=== PATIENT | female | born 1995 | race Two or more races ===

== ENCOUNTER 2017-05-20 12:20 | Emergency (ER) | payer MEDICAID ==
[2017-05-20 12:39] VITALS: TEMP 98.8
[2017-05-20 12:52] VITALS: RESP 18
--- NOTE | 2017-05-20 13:03 | ED PDOC ---
Arrival/HPI - General Chief Complaint: Headache Time Seen by Provider: 05/20/17 12:47 Historian: Patient - History of Present Illness Narrative History of Present Illness (Text): 05/20/17 12:52 Selma Little is a 21 year old female, whose past medical history includes migraine, who presents to the emergency department complaining of worsening headache today. Patient states that her last menstrual cycle was in March and is afraid to take any migraine medication because patient is worried that she is . No other complaints offered at this time. Past Medical History - Provider Review Nursing Documentation Reviewed: Yes - Cardiac Hx Cardiac Disorders: No - Pulmonary Hx Respiratory Disorders: No - Neurological Hx Neurological Disorder: Yes Hx Headaches: Yes - HEENT Hx HEENT Disorder: No - Renal Hx Renal Disorder: No - Endocrine/Metabolic Hx Endocrine Disorders: No - Hematological/Oncological Hx Blood Disorders: No - Integumentary Hx Dermatological Disorder: No - Musculoskeletal/Rheumatological Hx Musculoskeletal Disorders: Yes Hx Fractures: Yes - Gastrointestinal Hx Gastrointestinal Disorders: No - Genitourinary/Gynecological Hx Genitourinary Disorders: No - Psychiatric Hx Psychophysiologic Disorder: No Hx Substance Use: No Family/Social History - Physician Review Nursing Documentation Reviewed: Yes Family/Social History: No Known Family HX Smoking Status: Never Smoked Hx Alcohol Use: Yes Frequency of alcohol use: Socially Hx Substance Use: No Allergies/Home Meds Allergies/Adverse Reactions: Allergies No Known Allergies Allergy (Verified 05/20/17 12:34) Review of Systems - Physician Review All systems were reviewed & negative as marked: Yes - Review of Systems Constitutional: absent: Fevers, Night Sweats Eyes: absent: Vision Changes ENT: absent: Hearing Changes Respiratory: absent: SOB, Cough Cardiovascular: absent: Chest Pain Gastrointestinal: absent: Abdominal Pain Genitourinary Female: absent: Dysuria Musculoskeletal: absent: Arthralgias Skin: absent: Rash, Pruritis Neurological: Headache Endocrine: absent: Diaphoresis Hemo/Lymphatic: absent: Adenopathy Psychiatric: absent: Anxiety, Depression Physical Exam Vital Signs Reviewed: Yes Vital Signs Temp Pulse Resp BP Pulse Ox 05/20/17 12:51 98.8 F 83 18 144/79 98 05/20/17 12:34 98.8 F 83 16 144/79 97 Temperature: Afebrile Blood Pressure: Normal Pulse: Regular Respiratory Rate: Normal Appearance: Positive for: Well-Appearing, Non-Toxic, Comfortable Pain Distress: None Mental Status: Positive for: Alert and Oriented X 3 - Systems Exam Head: Present: Atraumatic, Normocephalic Pupils: Present: PERRL Extroacular Muscles: Present: EOMI Conjunctiva: Present: Normal Mouth: Present: Moist Mucous Membranes Neck: Present: Normal Range of Motion Respiratory/Chest: Present: Clear to Auscultation, Good Air Exchange. No: Respiratory Distress, Accessory Muscle Use Cardiovascular: Present: Regular Rate and Rhythm, Normal S1, S2. No: Murmurs Abdomen: Present: Normal Bowel Sounds. No: Tenderness, Distention, Peritoneal Signs Back: Present: Normal Inspection Upper Extremity: Present: Normal Inspection. No: Cyanosis, Edema Lower Extremity: Present: Normal Inspection. No: Edema Neurological: Present: GCS=15, CN II-XII Intact, Speech Normal Skin: Present: Warm, Dry, Normal Color. No: Rashes Psychiatric: Present: Alert, Oriented x 3, Normal Insight, Normal Concentration Medical Decision Making ED Course and Treatment: 05/20/17 13:03 Impression: 21 year old female complaining of a worsening headache Differential Diagnosis included but are not limited to: Plan: -- Head CT w/o contrast -- Flexeril, Motrin, and Zofran -- Reassess and disposition Progress Notes: - RAD Interpretation Radiology Orders: 05/20/17 12:53 HEAD W/O CONTRAST [CT] Stat - Medication Orders Current Medication Orders: Discontinued Medications Cyclobenzaprine HCl (Flexeril) 10 mg PO STAT STA Stop: 05/20/17 12:54 Last Admin: 05/20/17 13:21 Dose: 10 mg Ibuprofen (Motrin Tab) 800 mg PO STAT STA Stop: 05/20/17 12:54 Last Admin: 05/20/17 13:21 Dose: 800 mg Ondansetron HCl (Zofran Odt) 8 mg PO STAT STA Stop: 05/20/17 12:54 Last Admin: 05/20/17 13:21 Dose: 8 mg - Scribe Statement The provider has reviewed the documentation as recorded by the Bronwynibe Tereza Rivas Provider Scribe Attestation: All medical record entries made by the Scribe were at my direction and personally dictated by me. I have reviewed the chart and agree that the record accurately reflects my personal performance of the history, physical exam, medical decision making, and the department course for this patient. I have also personally directed, reviewed, and agree with the discharge instructions and disposition. Disposition/Present on Arrival - Present on Arrival Any Indicators Present on Arrival: No History of DVT/PE: No History of Uncontrolled Diabetes: No Urinary Catheter: No History of Decub. Ulcer: No History Surgical Site Infection Following: None - Disposition Have Diagnosis and Disposition been Completed?: Yes Diagnosis: Headache Disposition: HOME/ ROUTINE Disposition Time: 15:09 Patient Plan: Discharge Patient Problems: Current Active Problems Problem Status Onset Headache Acute Condition: GOOD Discharge Instructions (ExitCare): Migraine Headache (DC), Tension Headache (DC ) Additional Instructions: Selma- I am sorry that you are not feeling well and the headaches are getting worse. Your CT Scan was negative/normal. Follow up with your doctor. Return to us if problems. Motrin if for pain, Zofran ODT is for nausea/upset stomach Prescriptions: Ibuprofen [Motrin Tab] 800 mg PO TID #30 tab Ondansetron ODT [Zofran ODT] 8 mg PO TID #30 odt Forms: [employer] (Lao)
--- NOTE | 2017-05-20 14:00 | CT ---
PROCEDURE: CT HEAD WITHOUT CONTRAST. HISTORY: Left Sided Headache/Occipital COMPARISON: None available. TECHNIQUE: Axial computed tomography images were obtained through the head/brain without intravenous contrast. Radiation dose: Total exam DLP = 873 mGy-cm. This CT exam was performed using one or more of the following dose reduction techniques: Automated exposure control, adjustment of the mA and/or kV according to patient size, and/or use of iterative reconstruction technique. FINDINGS: HEMORRHAGE: No intracranial hemorrhage. BRAIN: No mass effect or edema. No atrophy or chronic microvascular ischemic changes. VENTRICLES: Unremarkable. No hydrocephalus. CALVARIUM: Unremarkable. PARANASAL SINUSES: Unremarkable as visualized. No significant inflammatory changes. MASTOID AIR CELLS: Unremarkable as visualized. No inflammatory changes. OTHER FINDINGS: None. IMPRESSION: Normal CT of the Head.
[2017-05-20 15:20] VITALS: BP 132/71; PULSE 71; O2SAT 100
== END 2017-05-20 15:20 | disposition home or self-care (01) ==
LOC: ED 12:20 → MERGE 12:20 → ED 15:20
DX: R51 Headache (principal)

== ENCOUNTER 2017-06-23 21:19 | Observation (INO) | payer BC, MEDICAID ==
[2017-06-23] MEDS ORDERED: Sodium Chloride 0.9% 1,000 ML IV STA (21:48)
--- NOTE | 2017-06-23 21:52 | ED PDOC ---
Arrival/HPI <Emile York - Last Filed: 06/24/17 00:27> - General Historian: Patient - History of Present Illness Time/Duration: Other (today) Symptom Onset: Gradual Symptom Course: Unchanged Quality: Aching, Cramping Activities at Onset: Light Context: Home <Miles Zamora - Last Filed: 06/24/17 02:03> - General Chief Complaint: Abdominal Pain Time Seen by Provider: 06/23/17 21:37 - History of Present Illness Narrative History of Present Illness (Text): 06/23/17 21:47 21 year old female, with no significant past medical history, no known drug allergies, who presents to the Emergency department complaining of lower abdominal pain which started earlier today. Patient describes pain as aching and cramping sensation, on and off with same severity, and non-radiating. Patient denies any urinary symptoms or vomiting, but notes she feels nauseous. Patient reports her last normal menstrual period was March 2017. Pt. has no fever or chills, no flank pain. (Miles Zamora) Past Medical History - Provider Review Nursing Documentation Reviewed: Yes - Cardiac Hx Cardiac Disorders: No - Pulmonary Hx Respiratory Disorders: No - Neurological Hx Neurological Disorder: Yes Hx Headaches: Yes - HEENT Hx HEENT Disorder: No - Renal Hx Renal Disorder: No - Endocrine/Metabolic Hx Endocrine Disorders: No - Hematological/Oncological Hx Blood Disorders: No - Integumentary Hx Dermatological Disorder: No - Musculoskeletal/Rheumatological Hx Musculoskeletal Disorders: Yes Hx Fractures: Yes - Gastrointestinal Hx Gastrointestinal Disorders: No - Genitourinary/Gynecological Hx Genitourinary Disorders: No - Psychiatric Hx Psychophysiologic Disorder: No Hx Substance Use: No <Miles Zamora - Last Filed: 06/24/17 02:03> Family/Social History - Physician Review Nursing Documentation Reviewed: Yes Family/Social History: Unknown Family HX Smoking Status: Never Smoked Hx Alcohol Use: Yes Hx Substance Use: No <Miles Zamora - Last Filed: 06/24/17 02:03> Allergies/Home Meds <Emile York - Last Filed: 06/24/17 00:27> <Miles Zamora - Last Filed: 06/24/17 02:03> Allergies/Adverse Reactions: Allergies No Known Allergies Allergy (Verified 05/20/17 12:34) Review of Systems - Physician Review All systems were reviewed & negative as marked: Yes - Review of Systems Constitutional: absent: Fevers Respiratory: absent: SOB, Cough Cardiovascular: absent: Chest Pain Gastrointestinal: Abdominal Pain, Nausea. absent: Diarrhea, Vomiting Genitourinary Female: absent: Dysuria, Frequency, Hematuria, Urine Output Changes Musculoskeletal: absent: Back Pain, Neck Pain Skin: absent: Rash Neurological: absent: Headache, Dizziness <Miles Zamora Q - Last Filed: 06/24/17 02:03> Physical Exam Vital Signs Reviewed: Yes Temperature: Afebrile Blood Pressure: Normal Pulse: Regular Respiratory Rate: Normal Appearance: Positive for: Well-Appearing, Non-Toxic, Comfortable Pain Distress: Moderate Mental Status: Positive for: Alert and Oriented X 3 - Systems Exam Head: Present: Atraumatic, Normocephalic Pupils: Present: PERRL Extroacular Muscles: Present: EOMI Conjunctiva: Present: Normal Mouth: Present: Moist Mucous Membranes Neck: Present: Normal Range of Motion Respiratory/Chest: Present: Clear to Auscultation, Good Air Exchange. No: Respiratory Distress, Accessory Muscle Use Cardiovascular: Present: Regular Rate and Rhythm, Normal S1, S2. No: Murmurs Abdomen: Present: Tenderness (Slight tenderness to LLQ and +TTP on the RLQ, negative weaver sign, no RLQ or periumbilical tenderness). 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 No: Normal External Genitalia, Vaginal Discharge, Vaginal Bleeding, Adenexal Tenderness, Adenexal Mass, Cervical Motion Tendernes, Odor Back: Present: Normal Inspection. No: CVA Tenderness Upper Extremity: Present: Normal Inspection. No: Cyanosis, Edema Lower Extremity: Present: Normal Inspection. No: Edema Neurological: Present: GCS=15, Speech Normal, Motor Func Grossly Intact, Gait Normal, Memory Normal Skin: Present: Warm, Dry, Normal Color. No: Rashes Psychiatric: Present: Alert, Oriented x 3, Normal Insight, Normal Concentration <Miles Zamora Q - Last Filed: 06/24/17 02:03> Vital Signs Temp Pulse Resp BP Pulse Ox 06/24/17 00:38 65 18 116/70 100 04/08/18 22:07 98.2 F 72 18 116/66 99 Medical Decision Making <Emile York - Last Filed: 06/24/17 00:27> - Lab Interpretations I have reviewed the lab results: Yes Interpretation: All labs normal - RAD Interpretation Traffic Assistant: Radiologist <Miles Zamora - Last Filed: 06/24/17 02:03> ED Course and Treatment: 06/23/17 21:47 Impression: 21 year old female complaining of aching/cramping lower abdominal and nausea since this morning. Plan: -- Labs -- Urinalysis, urine preg -- Transvaginal US/CT abdomen and pelvis -- Tylenol -- Pepcid --IVF -- Reassess and disposition 06/24/17 01:00 -Urine hcg is negative -Transvaginal sonogram: Complex cystic right ovarian mass measuring 5 cm, question hemorrhagic cyst. Thickened endometrium with cystic areas within measured up to 1.8 cm. -CT abdomen and pelvis show Approximately 5 cm, appearing lesion involving the right adnexa. Correlate with dedicated ultrasound. -Labs show no acute findings except wbc 16 which the source is not clear -UA show no UTI -Pt. feels still having pain -Pt. has elevation of the wbc 16, lower abdominal pain with the ovarian cyst 5cm on the rt. adnexal region, IV rocephine and will observe the patient over night. -Paging Dr. Krishnamurthy, medicine welder production line combination. 06/24/17 02:00 -Dr. Krishnamurthy hasn't call back after 1 hour, will page the hospitalist. 06/24/17 02:02 -I spoke to the emergency medical service coordinator DR. Pantoja and Dr. Elise, discussed about the case/labs/radiology result, agreed to observe the patient over night. (Miles Zamora) - Lab Interpretations Lab Results: 06/23/17 22:00 06/23/17 22:00 Lab Results 06/24/17 00:30: Urine Color Yellow, Urine Appearance Clear, Urine pH 6.5, Ur Specific [place] <= 1.005, Urine Protein Negative, Urine Glucose (UA) Negative, Urine Ketones Negative, Urine Blood Negative, Urine Nitrate Negative, Urine Bilirubin Negative, Urine Urobilinogen 0.2, Ur Leukocyte Esterase Negative 06/23/17 22:00: Sodium 140, Potassium 4.1, Chloride 103, Carbon Dioxide 26, Anion Gap 16, BUN 11, Creatinine 0.8, Est GFR ( Amer) > 60, Est GFR (Non- Af Amer) > 60, Random Glucose 106, Calcium 9.6, Total Bilirubin 0.6, AST 20, ALT 22, Alkaline Phosphatase 53, Total Protein 7.7, Albumin 4.3, Globulin 3.4, Albumin/Globulin Ratio 1.3 06/23/17 22:00: WBC 16.0 H, RBC 4.75, Hgb 15.0, Hct 41.9, MCV 88.2, MCH 31.6, MCHC 35.8, RDW 12.2, Plt Count 272, MPV 9.9, Gran % 79.3 H, Lymph % (Auto) 16.3 L, Barry % (Auto) 3.9, Eos % (Auto) 0.4 L, Baso % (Auto) 0.1, Gran # 12.65 H, Lymph # (Auto) 2.6, Barry # (Auto) 0.6, Eos # (Auto) 0.1, Baso # (Auto) 0.02 - RAD Interpretation Radiology Orders: 06/23/17 21:48 TRANSVAGINAL [US] Stat 06/23/17 22:05 ABDOMEN & PELVIS [ABD & PELVIS IV CONTRAST ONLY] [CT] Stat 06/23/17 21:48 TRANSVAGINAL [US] Stat 06/23/17 22:05 ABDOMEN & PELVIS [ABD & PELVIS IV CONTRAST ONLY] [CT] Stat CT abdomen and pelvis: FINDINGS: Lung bases: No acute abnormality as visualized. ABDOMEN: Liver: No acute abnormality as visualized. Gallbladder and bile ducts: No acute abnormality as visualized. Pancreas: No acute abnormality as visualized. Spleen: No splenomegaly. Adrenals: No acute abnormality as visualized. Kidneys and ureters: Symmetric emhancement. No hydronephrosis. Stomach and bowel: Evaluation limited without enteric contrast. No obstruction. Appendix: No findings to suggest acute appendicitis. PELVIS: Bladder: No acute abnormality as visualized. Reproductive: Approximately 5 cm, appearing lesion involving the right adnexa. Correlate with dedicated ultrasound. ABDOMEN and PELVIS: Intraperitoneal space: No free air. No significant fluid collection. Bones/joints: Mild degenerative changes at L4-S1. Vasculature: No acute abnormality as visualized. No abdominal aortic aneurysm. Lymph nodes: No acute abnormality as visualized. IMPRESSION: Approximately 5 cm, appearing lesion involving the right adnexa. Correlate with dedicated ultrasound. Additional details/findings as above. Thank you for allowing us to participate in the care of your patient. Dictated and Authenticated by: Annalee Goldstein MD 06/24/2017 12:14 AM Eastern Time ( & [place]) Transvaginal sonogram: Uterus/cervix: Measured at 8.8 x 5.1 x 4.7 cm. Thickened endometrium with cystic areas within measured up to 1.8 cm. Right ovary: Measured at 7.8 x 3.5 x 7 cm. Complex cystic mass measuring 5 x 4 x 4.7 cm, question hemorrhagic cyst. Doppler flow. Left ovary: Measured at 4.8 x 2.6 x 4 cm. Doppler flow. Free fluid: No free fluid. IMPRESSION: Complex cystic right ovarian mass measuring 5 cm, question hemorrhagic cyst. Thickened endometrium with cystic areas within measured up to 1.8 cm. Followup evaluation recommended. Thank you for allowing us to participate in the care of your patient. Dictated and Authenticated by: Annalee Goldstein MD 06/24/2017 12:20 AM Eastern Time ( & [place]) (Miles Zamora) - Medication Orders Current Medication Orders: Discontinued Medications Acetaminophen (Tylenol 325mg Tab) 650 mg PO STAT STA Stop: 06/23/17 21:49 Last Admin: 06/23/17 22:09 Dose: 650 mg Famotidine (Pepcid) 20 mg IVP STAT STA Stop: 06/23/17 21:49 Last Admin: 06/23/17 22:09 Dose: 20 mg IVP Administration Document 06/23/17 22:09 CNR (Rec: 06/23/17 22:09 CNJovana [id number]) Charges for Administration # of IVP Administrations 1 Sodium Chloride (Sodium Chloride 0.9%) 1,000 mls @ 999 mls/hr IV .Q1H1M STA Stop: 06/23/17 22:48 Last Admin: 06/23/17 22:08 Dose: 999 mls/hr eMAR Start Stop Document 06/23/17 22:08 CNR (Rec: 06/23/17 22:09 CNR [id number]) Intravenous Solution Start Date 06/23/17 Start Time 22:09 Ceftriaxone Sodium (Rocephin 1 Gram Ivpb) 1 gm in 100 mls @ 200 mls/hr IVPB STAT STA PRN Reason: Protocol Stop: 06/24/17 01:27 Last Admin: 06/24/17 01:15 Dose: 200 mls/hr eMAR Start Stop Document 06/24/17 01:15 CNR (Rec: 06/24/17 01:16 CNR [id number]) Intravenous Solution Start Date 06/24/17 Start Time 01:16 End Date 06/24/17 End time 01:46 Total Infusion Time 30 Ketorolac Tromethamine (Toradol) 30 mg IVP STAT STA Stop: 06/24/17 00:59 Last Admin: 06/24/17 00:56 Dose: 30 mg MAR Pain Assessment Document 06/24/17 00:56 CNR (Rec: 06/24/17 01:16 CNR [id number]) Pain Reassessment Is this a pain reassessment? Yes IVP Administration Document 06/24/17 00:56 CNR (Rec: 06/24/17 01:16 CNR [id number]) Charges for Administration # of IVP Administrations 1 - PA / TURNTABLE ENGINEER / Resident Statement / has reviewed & agrees with the documentation as recorded. MD/DO has examined the patient and agrees with the treatment plan. <Emile York - Last Filed: 06/24/17 00:27> - PA / TURNTABLE ENGINEER / Resident Statement / has reviewed & agrees with the documentation as recorded. / has examined the patient and agrees with the treatment plan. - Scribe Statement The provider has reviewed the documentation as recorded by the Scribe <Miles Zamora - Last Filed: 06/24/17 02:03> - Scribe Statement Connie Roberts All medical record entries made by the Scribe were at my direction and personally dictated by me. I have reviewed the chart and agree that the record accurately reflects my personal performance of the history, physical exam, medical decision making, and the department course for this patient. I have also personally directed, reviewed, and agree with the discharge instructions and disposition. (Miles Zamora) Disposition/Present on Arrival <Emile York - Last Filed: 06/24/17 00:27> - Present on Arrival Any Indicators Present on Arrival: No History of DVT/PE: No History of Uncontrolled Diabetes: No Urinary Catheter: No History of Decub. Ulcer: No History Surgical Site Infection Following: None - Disposition Have Diagnosis and Disposition been Completed?: Yes Disposition Time: 01:00 Patient Plan: Admission, Observation <Miles Zamora - Last Filed: 06/24/17 02:03> - Disposition Diagnosis: Ovarian cyst, Lower abdominal pain, Leukocytosis Disposition: HOSPITALIZED Patient Problems: Current Active Problems Problem Status Onset Ovarian cyst Acute Lower abdominal pain Acute Leukocytosis Acute Condition: STABLE Forms: [employer] (Persian)
[2017-06-23 22:28] LABS: ALB/GLOB RATIO 1.3 (1.1-1.8); ALBUMIN 4.3 g/dL (3.0-4.8); ALT/SGPT 22 U/L (7-56); AST/SGOT 20 U/L (14-36); BLOOD UREA NITROGEN 11 mg/dL (7-21); CALCIUM 9.6 mg/dL (8.4-10.5); GFR AFRICAN-AMERICAN > 60; GFR NON-AFRICAN AMERICAN > 60
[2017-06-23] MEDS ORDERED: Iohexol 350 MG/100 ML VIAL ONE ×2 (22:54)
[2017-06-23 23:02] LABS: BASO # 0.02 K/mm3 (0.0-2.0); BASO % 0.1 % (0.0-3.0); EOS # 0.1 (0.0-0.7); EOS % 0.4 % (1.5-5.0); GRAN # 12.65 (1.4-6.5); GRAN % 79.3 % (50.0-68.0); LYMPH # 2.6 (1.2-3.4); LYMPH % 16.3 % (22.0-35.0); MEAN CELL VOLUME 88.2 fl (80.0-105.0); MEAN CORPUSCULAR HEMOGLOBIN 31.6 pg (25.0-35.0); MEAN CORPUSCULAR HGB CONC 35.8 g/dl (31.0-37.0); MEAN PLATELET VOLUME 9.9 fl (7.0-11.0); MONO # 0.6 (0.1-0.6); MONO % 3.9 % (1.0-6.0); RBC 4.75 10^6/uL (3.5-6.1); RED CELL DISTRIBUTION WIDTH 12.2 % (11.5-14.5)
--- NOTE | 2017-06-24 00:15 | CT ---
EXAM: CT Abdomen and Pelvis With Intravenous Contrast CLINICAL HISTORY: 21 years old, female; Pain; Abdominal pain; Acute; Additional info: Lower abdominal pain TECHNIQUE: Axial computed tomography images of the abdomen and pelvis with intravenous contrast. All CT scans at this facility use one or more dose reduction techniques, viz.: automated exposure control; ma/kV adjustment per patient size (including targeted exams where dose is matched to indication; i.e. head); or iterative reconstruction technique. Coronal and sagittal reformatted images were created and reviewed. CONTRAST: 100 mL of OMNI 350 administered intravenously. COMPARISON: No relevant prior studies available. FINDINGS: Lung bases: No acute abnormality as visualized. ABDOMEN: Liver: No acute abnormality as visualized. Gallbladder and bile ducts: No acute abnormality as visualized. Pancreas: No acute abnormality as visualized. Spleen: No splenomegaly. Adrenals: No acute abnormality as visualized. Kidneys and ureters: Symmetric emhancement. No hydronephrosis. Stomach and bowel: Evaluation limited without enteric contrast. No obstruction. Appendix: No findings to suggest acute appendicitis. PELVIS: Bladder: No acute abnormality as visualized. Reproductive: Approximately 5 cm, appearing lesion involving the right adnexa. Correlate with dedicated ultrasound. ABDOMEN and PELVIS: Intraperitoneal space: No free air. No significant fluid collection. Bones/joints: Mild degenerative changes at L4-S1. Vasculature: No acute abnormality as visualized. No abdominal aortic aneurysm. Lymph nodes: No acute abnormality as visualized. IMPRESSION: Approximately 5 cm, appearing lesion involving the right adnexa. Correlate with dedicated ultrasound. Additional details/findings as above.
--- NOTE | 2017-06-24 00:20 | US ---
EXAM: US Pelvis CLINICAL HISTORY: 21 years old, female; Pain; Pelvic pain; Additional info: Lower abdominal pain TECHNIQUE: Real-time transabdominal and transvaginal pelvic ultrasound (complete) with image documentation. Transvaginal imaging was used for better evaluation of the endometrium and adnexa. COMPARISON: CT - ABD PELVIS IV CONTRAST ONLY 2017-06-23 22:42 FINDINGS: Uterus/cervix: Measured at 8.8 x 5.1 x 4.7 cm. Thickened endometrium with cystic areas within measured up to 1.8 cm. Right ovary: Measured at 7.8 x 3.5 x 7 cm. Complex cystic mass measuring 5 x 4 x 4.7 cm, question hemorrhagic cyst. Doppler flow. Left ovary: Measured at 4.8 x 2.6 x 4 cm. Doppler flow. Free fluid: No free fluid. IMPRESSION: Complex cystic right ovarian mass measuring 5 cm, question hemorrhagic cyst. Thickened endometrium with cystic areas within measured up to 1.8 cm. Followup evaluation recommended.
[2017-06-24 00:39] LABS: PH,URINE 6.5 (4.7-8.0); URINE BILIRUBIN NEGATIVE (NEGATIVE); URINE BLOOD NEGATIVE (NEGATIVE); URINE GLUCOSE (UA) NEGATIVE (NEGATIVE); URINE LEUKOCYTE ESTERASE NEGATIVE Leu/uL (NEGATIVE); URINE PROTEIN NEGATIVE mg/dL (<30 mg/dL); URINE UROBILINOGEN 0.2 E.U./dL (<1 E.U./dL)
[2017-06-24 00:45] LABS: URINE APPEARANCE CLEAR (CLEAR); URINE COLOR YELLOW (YELLOW)
[2017-06-24] MEDS ORDERED: cefTRIAXone 1 gm 1 GM/100 ML BAG IVPB STA (00:58)
--- NOTE | 2017-06-24 03:18 | CP.PCM.HP ---
<Scarlett Harden - Last Filed: 06/24/17 03:27> History of Present Illness - History of Present Illness History of Present Illness: Scarlett Harden, PGY1, H&P for Dr Elise: CC: pelvic pain 21 year old female, with no significant past medical history, presents to ED for pelvic pain that started yesterday morning. Pt states that she woke up yesterday morning and had this crampy lower abdominal pain, constant, radiated to epigastric region, worse with movement/position changes, has associated mild nausea, abdominal fulness/bloating. Denies dyspareunia, difficult bowel movements, indigestion, tenesmus. Pt does have a history of irregular menstrual periods. Her last LMP 04/13/2017. Denies fever, chills, vomiting, cough, diarrhea , constipation, urinary symptoms, leg swelling. Denies sick contacts or recent travel. 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 Drinks wine socially , denies tobacco/illicit drug use currently. Used to smoke marijuana daily 2 years ago. Present on Admission - Present on Admission Any Indicators Present on Admission: No History of DVT/PE: No History of Uncontrolled Diabetes: No Urinary Catheter: No Decubitus Ulcer Present: No Review of Systems - Review of Systems All systems: reviewed and no additional remarkable complaints except Review of Systems: as per HPI Past Patient History - Past Social History Smoking Status: Never Smoked - CARDIAC Hx Cardiac Disorders: No - PULMONARY Hx Respiratory Disorders: No - NEUROLOGICAL Hx Neurological Disorder: Yes - HEENT Hx HEENT Problems: No - RENAL Hx Chronic Kidney Disease: No - ENDOCRINE/METABOLIC Hx Endocrine Disorders: No - HEMATOLOGICAL/ONCOLOGICAL Hx Blood Disorders: No - INTEGUMENTARY Hx Dermatological Problems: No - MUSCULOSKELETAL/RHEUMATOLOGICAL Hx Musculoskeletal Disorders: Yes Hx Fractures: Yes - GASTROINTESTINAL Hx Gastrointestinal Disorders: No - GENITOURINARY/GYNECOLOGICAL Hx Genitourinary Disorders: No - PSYCHIATRIC Hx Psychophysiologic Disorder: No Hx Substance Use: No - SURGICAL HISTORY Hx Surgeries: No Meds Allergies/Adverse Reactions: Allergies Allergy/AdvReac Type Severity Reaction Status Date / Time No Known Allergies Allergy Verified 05/20/17 12:34 Physical Exam - Constitutional Appears: Non-toxic, No Acute Distress - Head Exam Head Exam: ATRAUMATIC, NORMOCEPHALIC - Eye Exam Eye Exam: EOMI, PERRL. absent: Conjunctival injection, Nystagmus, Scleral icterus Pupil Exam: NORMAL ACCOMODATION, PERRL. absent: Fixed, Irregular, Unequal - ENT Exam ENT Exam: Mucous Membranes Moist - Neck Exam Neck exam: Positive for: Full Rom - Respiratory Exam Respiratory Exam: Clear to Auscultation Bilateral, NORMAL BREATHING PATTERN. absent: Chest Wall Tenderness, Rales, Rhonchi, Wheezes, Stridor - Cardiovascular Exam Cardiovascular Exam: RRR, +S1, +S2. absent: Systolic Murmur - GI/Abdominal Exam GI & Abdominal Exam: Normal Bowel Sounds, Soft, Tenderness (TTP in right and left lower abdominal area, pelvic area). absent: Distended, Firm, Mass, Rebound , Rigid - Extremities Exam Extremities exam: Positive for: normal inspection. Negative for: calf tenderness, pedal edema - Back Exam Back exam: CVA tenderness (R), NORMAL INSPECTION. absent: CVA tenderness (L) - Neurological Exam Neurological exam: Alert, Oriented x3 - Psychiatric Exam Psychiatric exam: Normal Affect, Normal Mood - Skin Skin Exam: Intact, Normal Color, Warm Results - Vital Signs Recent Vital Signs: Last Vital Signs Temp 98.2 F 06/23/17 22:07 Pulse 65 06/24/17 00:38 Resp 18 06/24/17 00:38 BP 116/70 06/24/17 00:38 Pulse Ox 100 06/24/17 00:38 - Labs Result Diagrams: 06/23/17 22:00 06/23/17 22:00 Assessment & Plan - Assessment and Plan (Free Text) Assessment: 21 year old female with hx of irregular periods, presents for lower abdominal pain: Lower abdominal pain: 2/2 right ovarian complex cyst - hemorrhagic cyst vs malignancy vs endometriomas vs dermoids - Transvaginal US shows right ovary 7.8x3/5x7 cm, complex cystic mass 5x4x4.7 cm , question hemorrhagic cyst. No free fluid. thickened endometrium with cystic areas within measured 1.8 cm. - CA-125 - f/u B HCG - Toradol prn pain - [employer] consult. F/u recs Leukocytosis: reactive, ruled out UTI, intra-abdominal etiology - Vitals stable - repeat cbc in AM PPX: Pepcid, SCDs Discussed with Dr Elise. - Date & Time Date: 06/24/17 Time: 03:18 <Bess Elise - Last Filed: 06/24/17 03:35> Results - Vital Signs Recent Vital Signs: Last Vital Signs Temp 98.0 F 06/24/17 03:21 Pulse 79 06/24/17 02:59 Resp 18 06/24/17 02:59 BP 111/77 06/24/17 02:59 Pulse Ox 100 06/24/17 02:59 - Labs Result Diagrams: 06/23/17 22:00 06/23/17 22:00 Attending/Attestation - Attestation I have personally seen and examined this patient.: Yes I have fully participated in the care of the patient.: Yes I have reviewed all pertinent clinical information: Yes Notes (Text): 06/24/17 03:34 Patient was seen when she was in bed # 6 in the ER. Gives history of being on abilify for 2 years, left tibial fracture at age 6 years. Agree with history , physical examination , assessment and plan.
[2017-06-24 04:44] VITALS: BMI 29.0
[2017-06-24 07:34] LABS: BASO # 0.01 K/mm3 (0.0-2.0); BASO % 0.1 % (0.0-3.0); EOS # 0.1 (0.0-0.7); GRAN # 5.89 (1.4-6.5); GRAN % 63.1 % (50.0-68.0); LYMPH # 2.8 (1.2-3.4); LYMPH % 30.3 % (22.0-35.0); MEAN CELL VOLUME 87.3 fl (80.0-105.0); MEAN CORPUSCULAR HEMOGLOBIN 30.5 pg (25.0-35.0); MEAN CORPUSCULAR HGB CONC 34.9 g/dl (31.0-37.0); MEAN PLATELET VOLUME 9.6 fl (7.0-11.0); MONO # 0.5 (0.1-0.6); MONO % 5.5 % (1.0-6.0); RBC 4.17 10^6/uL (3.5-6.1); RED CELL DISTRIBUTION WIDTH 12.3 % (11.5-14.5); WHITE BLOOD COUNT 9.3 10^3/ul (4.5-11.0)
[2017-06-24 07:35] LABS: HEMOGLOBIN 12.7 g/dL (12.0-16.0)
[2017-06-24 07:41] VITALS: BP 99/56; PULSE 81; RESP 20; TEMP 98; O2SAT 96
[2017-06-24 07:45] LABS: ALB/GLOB RATIO 1.2 (1.1-1.8); ALBUMIN 3.4 g/dL (3.0-4.8); ALT/SGPT 20 U/L (7-56); AST/SGOT 13 U/L (14-36); BLOOD UREA NITROGEN 10 mg/dL (7-21); CALCIUM 8.7 mg/dL (8.4-10.5); GFR AFRICAN-AMERICAN > 60; GFR NON-AFRICAN AMERICAN > 60
--- NOTE | 2017-06-24 10:34 | CP.PCM.CON ---
History of Present Illness - History of Present Illness History of Present Illness: Patient is a 21 yo nulliparous female who presented with sharp abdominal pain yesterday. Patient said the pain was severe, denied N/V, LOC, vaginal bleeding. Patient had not experienced pain like this before, came to ER. Denied LINK, CP, no SOB, no fever. Patient on U/S was found to have a 5cm complex ovarian mass on the right side, no free fluid. Vitals stable, Hgb stable at 15. Patient currently is asymptomatic, has no abdominal pain, tolerating PO diet, ambulating /voiding well, no LINK, no CP, no SOB Review of Systems - Constitutional Constitutional: As Per HPI - Cardiovascular Cardiovascular: As Per HPI - Respiratory Respiratory: As Per HPI - Reproductive: Female Reproductive:Female: Menses Variable - Menstruation Menstruation: Menses Variable Past Patient History - Infectious Disease Hx of Infectious Diseases: None - Past Medical History & Family History Past Medical History?: No - Past Social History Smoking Status: says never - CARDIAC Hx Cardiac Disorders: No Hx Angina: No Hx Cardia Arrhythmia: No Hx Circulatory Problems: No Hx Congestive Heart Failure: No Hx Heart Murmur: No Hx Heart Transplant: No Hx Hypercholesterolemia: No Hx Hypertension: No Hx Internal Defibrillator: No Hx Mitral Valve Prolapse: No Hx Pacemaker: No Hx Peripheral Edema: No Hx Peripheral Vascular Disease: No - PULMONARY Hx Respiratory Disorders: No Hx Asthma: No Hx Bronchitis: No Hx Chronic Obstructive Pulmonary Disease (COPD): No Hx Emphysema: No Hx Pneumonia: No Hx Respiratory Aspiration: No Hx Respiratory Tract Infection: No Hx Sleep Apnea: No Hx Tuberculosis: No - NEUROLOGICAL Hx Neurological Disorder: No Hx Alzheimer's Disease: No HX Cerebrovascular Accident: No Hx Dementia: No Hx Dizziness: No Hx Meningitis: No Hx Migraine: No Hx Parkinson's Disease: No Hx Seizures: No Hx Transient Ischemic Attacks (TIA): No - HEENT Hx HEENT Problems: No Hx Blind: No Hx Cataracts: No Hx Deafness: No Hx Difficulty Chewing: No Hx Epistaxis: No Hx Glaucoma: No Hx Macular Degeneration: No - RENAL Hx Chronic Kidney Disease: No Hx Dialysis: No Hx Kidney Stones: No Hx Neurogenic Bladder: No Hx Pyelonephritis: No Hx Renal (Kidney) Cancer: No Hx Renal Failure: No - ENDOCRINE/METABOLIC Hx Endocrine Disorders: No Hx Adrenal Cancer: No Hx Diabetes Insipidus: No Hx Diabetes Mellitus Type 1: No Hx Diabetes Mellitus Type 2: No Hx Hyperthyroidism: No Hx Hypothyroidism: No Hx Systemic Lupus Erythematosus: No - HEMATOLOGICAL/ONCOLOGICAL Hx Blood Disorders: No Hx AIDS: No Hx Anemia: No Hx Cancer: No Hx Chemotherapy: No Hx Cirrhosis: No Hx Hemophilia: No Hx Hepatitis A: No Hx Hepatitis B: No Hx Hepatitis C: No Hx Human Immunodeficiency Virus (HIV): No Hx Metastesis: No Hx Shingles: No Hx Sickle Cell Disease: No Hx Unexplained Bleeding: No - INTEGUMENTARY Hx Dermatological Problems: No Hx Basil Cell: No Hx Eczema: No Hx Melanoma: No Hx Psoriasis: No Hx Squamous Cell: No - MUSCULOSKELETAL/RHEUMATOLOGICAL Hx Musculoskeletal Disorders: No Hx Arthritis: No Hx Back Pain: No Hx Degenerative Joint Disease: No Hx Falls: No Hx Fractures: No Hx Gout: No Hx Herniated Disk: No Hx Myasthenia Gravis: No Hx Osteoarthritis: No Hx Osteomyelitis: No Hx Osteoporosis: No Hx Rhabdomyolysis: No Hx Spinal Stenosis: No Hx Unsteady Gait: No - GASTROINTESTINAL Hx Gastrointestinal Disorders: No Hx Colostomy: No Hx Crohn's Disease: No Hx Diverticulitis: No Hx Gall Bladder Disease: No Hx Gastroesophageal Reflux: No Hx Ileostomy: No Hx Liver Failure: No Hx Pancreatitis: No HX Swallowing Problems: No Hx Ulcer: No - GENITOURINARY/GYNECOLOGICAL Hx Genitourinary Disorders: No Hx Hematuria: No Hx Incontinence: No Hx Sexually Transmitted Disorders: No Hx Urinary Tract Infection: No Other/Comment: pt states she has irregular periods normally...previous came to ED because suspected she was but test were negative - PSYCHIATRIC Hx Psychophysiologic Disorder: No Hx Anxiety: No Hx Bipolar Disorder: No (pt denies hx but there is past ed visit with dx) Hx Depression: No Hx Emotional Abuse: No Hx Hallucinations: No Hx Panic Symptoms: No Hx Paranoia: No Hx Post Traumatic Stress Disorder: No Hx Psychosis: No (pt denies hx but there is past ed visit with dx) Hx Physical Abuse: No Hx Schizophrenia: No (pt denies hx but there is past ed visit with dx) Hx Sexual Abuse: No Hx Substance Use: No (says Never used any illegla substance) - SURGICAL HISTORY Hx Surgeries: No Hx Amputation: No Hx Appendectomy: No Hx Cardiac Catheterization: No Hx Cholecystectomy: No Hx Coronary Stent: No Hx Gastric Bypass Surgery: No Hx Hysterectomy: No Hx Joint Replacement: No Hx Kidney Transplant: No Hx Liver Transplant: No Hx Mastectomy: No Hx Musculoskeletal Surgery: No Hx Open Heart Surgery: No Hx Orthopedic Surgery: No Hx Splenectomy: No Hx Valve Replacement: No Other/Comment: Resident's note states pt had a left tibial fracture at the age of 6 Meds Allergies/Adverse Reactions: Allergies Allergy/AdvReac Type Severity Reaction Status Date / Time No Known Allergies Allergy Verified 05/20/17 12:34 - Medications Medications: Current Medications Ketorolac Tromethamine (Toradol) 15 mg IVP Q4H PRN PRN Reason: Pain, moderate (4-7) Ondansetron HCl (Zofran Inj) 4 mg IVP Q6H PRN PRN Reason: Nausea/Vomiting Pantoprazole Sodium (Protonix Inj) 40 mg IVP DAILY SARAH Last Admin: 06/24/17 09:36 Dose: 40 mg Physical Exam - Constitutional Appears: Well, Non-toxic - Respiratory Exam Respiratory Exam: Clear to Auscultation Bilateral, NORMAL BREATHING PATTERN - Cardiovascular Exam Cardiovascular Exam: REGULAR RHYTHM - GI/Abdominal Exam GI & Abdominal Exam: Normal Bowel Sounds Additional comments: soft, no rebound, no gaurding, +BS - Extremities Exam Extremities exam: Positive for: normal inspection Results - Vital Signs Recent Vital Signs: Last Vital Signs Temp 98 F 06/24/17 07:37 Pulse 81 06/24/17 07:37 Resp 20 06/24/17 07:37 BP 99/56 L 06/24/17 07:37 Pulse Ox 96 06/24/17 07:37 - Labs Result Diagrams: 06/24/17 07:00 06/24/17 07:00 Labs: Laboratory Results - last 24 hr 06/24/17 06/24/17 07:00 07:00 WBC 9.3 D RBC 4.17 Hgb 12.7 D Hct 36.4 MCV 87.3 MCH 30.5 MCHC 34.9 RDW 12.3 Plt Count 217 MPV 9.6 Gran % 63.1 Lymph % (Auto) 30.3 [place] % (Auto) 5.5 Eos % (Auto) 1.0 L Baso % (Auto) 0.1 Gran # 5.89 Lymph # (Auto) 2.8 [place] # (Auto) 0.5 Eos # (Auto) 0.1 Baso # (Auto) 0.01 Sodium 140 Potassium 3.6 Chloride 108 H Carbon Dioxide 24 Anion Gap 12 BUN 10 Creatinine 0.7 Est GFR ( Amer) > 60 Est GFR (Non-Af Amer) > 60 Random Glucose 79 Calcium 8.7 Total Bilirubin 0.4 AST 13 L D ALT 20 Alkaline Phosphatase 42 Total Protein 6.4 Albumin 3.4 Globulin 2.9 Albumin/Globulin Ratio 1.2 Assessment & Plan - Assessment and Plan (Free Text) Plan: A/P 21 yo with 5cm right complex cyst, suggestive of hemorrhagic cyst, asymptomatic 1. Patient currently asymptomatic, no free fluid in the abdomen and Hgb=12.7, vitals stable. Patient stable for discharge, no surgical intervention at this time 2. Patient has a private OBGYN Dr. Carbajal - recommend to patient to follow up with private doctor as outpatient, possible repeat U/S in 6 months 3. Consultation appreciated. - Date & Time Date: 06/24/17 Time: 10:34
--- NOTE | 2017-06-24 11:49 | CP.PCM.DIS ---
<Saúl Viramontes - Last Filed: 06/24/17 11:50> Provider - Provider Date of Admission: 06/24/17 02:01 Attending physician: Dominic Penn MD Primary care physician: Aaron Lorenzo MD Time Spent in preparation of Discharge (in minutes): 45 Diagnosis - Discharge Diagnosis (1) Ovarian cyst Status: Acute Priority: Medium (2) Lower abdominal pain Status: Resolved Priority: Medium Hospital Course - Lab Results Lab Results: Most Recent Lab Values WBC 9.3 10^3/ul (4.5-11.0) D 06/24/17 07:00 RBC 4.17 10^6/uL (3.5-6.1) 06/24/17 07:00 Hgb 12.7 g/dL (12.0-16.0) D 06/24/17 07:00 Hct 36.4 % (36.0-48.0) 06/24/17 07:00 MCV 87.3 fl (80.0-105.0) 06/24/17 07:00 MCH 30.5 pg (25.0-35.0) 06/24/17 07:00 MCHC 34.9 g/dl (31.0-37.0) 06/24/17 07:00 RDW 12.3 % (11.5-14.5) 06/24/17 07:00 Plt Count 217 10^3/uL (120.0-450.0) 06/24/17 07:00 MPV 9.6 fl (7.0-11.0) 06/24/17 07:00 Gran % 63.1 % (50.0-68.0) 06/24/17 07:00 Lymph % (Auto) 30.3 % (22.0-35.0) 06/24/17 07:00 [place] % (Auto) 5.5 % (1.0-6.0) 06/24/17 07:00 Eos % (Auto) 1.0 % (1.5-5.0) L 06/24/17 07:00 Baso % (Auto) 0.1 % (0.0-3.0) 06/24/17 07:00 Gran # 5.89 (1.4-6.5) 06/24/17 07:00 Lymph # (Auto) 2.8 (1.2-3.4) 06/24/17 07:00 [place] # (Auto) 0.5 (0.1-0.6) 06/24/17 07:00 Eos # (Auto) 0.1 (0.0-0.7) 06/24/17 07:00 Baso # (Auto) 0.01 K/mm3 (0.0-2.0) 06/24/17 07:00 Sodium 140 mmol/L (132-148) 06/24/17 07:00 Potassium 3.6 mmol/L (3.6-5.0) 06/24/17 07:00 Chloride 108 mmol/L (98-107) H 06/24/17 07:00 Carbon Dioxide 24 mmol/L (21-33) 06/24/17 07:00 Anion Gap 12 (10-20) 06/24/17 07:00 BUN 10 mg/dL (7-21) 06/24/17 07:00 Creatinine 0.7 mg/dl (0.7-1.2) 06/24/17 07:00 Est GFR ( Amer) > 60 06/24/17 07:00 Est GFR (Non-Af Amer) > 60 06/24/17 07:00 Random Glucose 79 mg/dL (70-110) 06/24/17 07:00 Calcium 8.7 mg/dL (8.4-10.5) 06/24/17 07:00 Total Bilirubin 0.4 mg/dL (0.2-1.3) 06/24/17 07:00 AST 13 U/L (14-36) L D 06/24/17 07:00 ALT 20 U/L (7-56) 06/24/17 07:00 Alkaline Phosphatase 42 U/L (38-126) 06/24/17 07:00 Total Protein 6.4 g/dL (5.8-8.3) 06/24/17 07:00 Albumin 3.4 g/dL (3.0-4.8) 06/24/17 07:00 Globulin 2.9 gm/dL 06/24/17 07:00 Albumin/Globulin Ratio 1.2 (1.1-1.8) 06/24/17 07:00 Beta HCG, Quant < 2.39 mIU/mL (0-6.15) 06/23/17 22:00 Urine Color Yellow (YELLOW) 06/24/17 00:30 Urine Appearance Clear (CLEAR) 06/24/17 00:30 Urine pH 6.5 (4.7-8.0) 06/24/17 00:30 Ur Specific [place] <= 1.005 (1.005-1.035) 06/24/17 00:30 Urine Protein Negative mg/dL (<30 mg/dL) 06/24/17 00:30 Urine Glucose (UA) Negative mg/dL (NEGATIVE) 06/24/17 00:30 Urine Ketones Negative mg/dL (NEGATIVE) 06/24/17 00:30 Urine Blood Negative (NEGATIVE) 06/24/17 00:30 Urine Nitrate Negative (NEGATIVE) 06/24/17:30 Urine Bilirubin Negative (NEGATIVE) 06/24/17 00:30 Urine Urobilinogen 0.2 E.U./dL (<1 E.U./dL) 06/24/17 00:30 Ur Leukocyte Esterase Negative Leo/uL (NEGATIVE) 06/24/17 00:30 - Hospital Course Hospital Course: Patient is 21 year old female with a past medical history of irregular periods who was admitted for evaluation and treatment of lower abdominal pain. With the use of physical examinations, lab work, and imaging the patient was diagnosed with an ovarian cyst. During their hospital stay the patient was seen by Dr. Liv quinteros, and her recommendations were both appreciated and utilized in the care for this patient. Dr. Peck recommended outpatient follow up with her private doctor,Dr. Carbajal, and possible repeat U/S in 6 months. During their hospital stay the patient underwent a trasvaginal ultrasound and abdominal/ pelvic CT which was reviewed, appreciated, and utilized in the management of the patients clinical course. The abdominal/pelvic CT showed an approximate 5 cm , appearing lesion involving the right adnexa. The transvaginal ultrasound showed a right ovary 7.8x3/5x7 cm, complex cystic mass 5x4x4.7 cm, question hemorrhagic cyst, no free fluid, thickened endometrium with cystic areas within measured 1.8 cm. Patient was treated with antinausea medications, analgesics, amongst other empiric/therapeutic medications. At this time the patient is medically stable for discharge. Patient understands and appreciates discharge plan. Patient instructed to follow up with primary care physicians and referrals within three to five days from discharge. Furthermore, the patient is instructed to take medications as prescribed and to return to emergency room for evaluation of intractable headache, fever, chills, dizziness, chest pain, shortness of breath , abdominal pain, nausea, vomiting, diarrhea, constipation, and urinary symptoms. This is a brief summary of the patients hospital course. Please see patient chart for full details. Discharge Exam - Head Exam Head Exam: ATRAUMATIC, NORMOCEPHALIC - Additional Findings Additional findings: - Constitutional Appears: Non-toxic, No Acute Distress - Head Exam Head Exam: ATRAUMATIC, NORMOCEPHALIC - Eye Exam Eye Exam: EOMI - ENT Exam ENT Exam: Mucous Membranes Moist - Neck Exam Neck exam: Positive for: Full Rom - Respiratory Exam Respiratory Exam: Clear to Auscultation Bilateral, NORMAL BREATHING PATTERN. absent: Chest Wall Tenderness, Rales, Rhonchi, Wheezes, Stridor - Cardiovascular Exam Cardiovascular Exam: RRR, +S1, +S2. absent: Systolic Murmur - GI/Abdominal Exam GI & Abdominal Exam: Normal Bowel Sounds, Soft, Non tender to palpation absent : Distended, Firm, Mass, Rebound, Rigid - Extremities Exam Extremities exam: Positive for: normal inspection. Negative for: calf tenderness, pedal edema - Neurological Exam Neurological exam: Alert, Oriented x3 - Psychiatric Exam Psychiatric exam: Normal Affect, Normal Mood - Skin Skin Exam: Intact, Normal Color, Warm Discharge Plan - Follow Up Plan Condition: STABLE Disposition: HOME/ ROUTINE Patient education suggested?: Yes Instructions: Acute Abdominal Pain (DC), Acute Abdominal Pain (GEN) Additional Instructions: Patient Instructions: Follow up with PMD and referrals within three to five days from discharge. Return to the emergency room for evaluation of intractable headache, fever, chills, dizziness, chest pain, shortness of breath, abdominal pain, nausea, vomiting, diarrhea, constipation, and urinary symptoms. Referrals: Aaron Lorenzo MD [Primary Care Provider] - Yusuf Carbajal MD [Staff Provider] - <Dominic Penn - Last Filed: 06/24/17 17:56> Provider - Provider Date of Admission: 06/24/17 02:01 Attending physician: Dominic Penn MD Primary care physician: Aaron Lorenzo MD Hospital Course - Lab Results Lab Results: Most Recent Lab Values WBC 9.3 10^3/ul (4.5-11.0) D 06/24/17 07:00 RBC 4.17 10^6/uL (3.5-6.1) 06/24/17 07:00 Hgb 12.7 g/dL (12.0-16.0) D 06/24/17 07:00 Hct 36.4 % (36.0-48.0) 06/24/17 07:00 MCV 87.3 fl (80.0-105.0) 06/24/17 07:00 MCH 30.5 pg (25.0-35.0) 06/24/17 07:00 MCHC 34.9 g/dl (31.0-37.0) 06/24/17 07:00 RDW 12.3 % (11.5-14.5) 06/24/17 07:00 Plt Count 217 10^3/uL (120.0-450.0) 06/24/17 07:00 MPV 9.6 fl (7.0-11.0) 06/24/17 07:00 Gran % 63.1 % (50.0-68.0) 06/24/17 07:00 Lymph % (Auto) 30.3 % (22.0-35.0) 06/24/17 07:00 [place] % (Auto) 5.5 % (1.0-6.0) 06/24/17 07:00 Eos % (Auto) 1.0 % (1.5-5.0) L 06/24/17 07:00 Baso % (Auto) 0.1 % (0.0-3.0) 06/24/17 07:00 Gran # 5.89 (1.4-6.5) 06/24/17 07:00 Lymph # (Auto) 2.8 (1.2-3.4) 06/24/17 07:00 [place] # (Auto) 0.5 (0.1-0.6) 06/24/17 07:00 Eos # (Auto) 0.1 (0.0-0.7) 06/24/17 07:00 Baso # (Auto) 0.01 K/mm3 (0.0-2.0) 06/24/17 07:00 Sodium 140 mmol/L (132-148) 06/24/17 07:00 Potassium 3.6 mmol/L (3.6-5.0) 06/24/17 07:00 Chloride 108 mmol/L (98-107) H 06/24/17 07:00 Carbon Dioxide 24 mmol/L (21-33) 06/24/17 07:00 Anion Gap 12 (10-20) 06/24/17 07:00 BUN 10 mg/dL (7-21) 06/24/17 07:00 Creatinine 0.7 mg/dl (0.7-1.2) 06/24/17 07:00 Est GFR ( Amer) > 60 06/24/17 07:00 Est GFR (Non-Af Amer) > 60 06/24/17 07:00 Random Glucose 79 mg/dL (70-110) 06/24/17 07:00 Calcium 8.7 mg/dL (8.4-10.5) 06/24/17 07:00 Total Bilirubin 0.4 mg/dL (0.2-1.3) 06/24/17 07:00 AST 13 U/L (14-36) L D 06/24/17 07:00 ALT 20 U/L (7-56) 06/24/17 07:00 Alkaline Phosphatase 42 U/L (38-126) 06/24/17 07:00 Total Protein 6.4 g/dL (5.8-8.3) 06/24/17 07:00 Albumin 3.4 g/dL (3.0-4.8) 06/24/17 07:00 Globulin 2.9 gm/dL 06/24/17 07:00 Albumin/Globulin Ratio 1.2 (1.1-1.8) 06/24/17 07:00 CA 125 Antigen 10.3 U/mL (0-35) 06/24/17 07:00 Beta HCG, Quant < 2.39 mIU/mL (0-6.15) 06/23/17 22:00 Urine Color Yellow (YELLOW) 06/24/17 00:30 Urine Appearance Clear (CLEAR) 06/24/17 00:30 Urine pH 6.5 (4.7-8.0) 06/24/17 00:30 Ur Specific [place] <= 1.005 (1.005-1.035) 06/24/17 00:30 Urine Protein Negative mg/dL (<30 mg/dL) 06/24/17 00:30 Urine Glucose (UA) Negative mg/dL (NEGATIVE) 06/24/17 00:30 Urine Ketones Negative mg/dL (NEGATIVE) 06/24/17 00:30 Urine Blood Negative (NEGATIVE) 06/24/17 00:30 Urine Nitrate Negative (NEGATIVE) 06/24/17 00:30 Urine Bilirubin Negative (NEGATIVE) 06/24/17 00:30 Urine Urobilinogen 0.2 E.U./dL (<1 E.U./dL) 06/24/17 00:30 Ur Leukocyte Esterase Negative Leo/uL (NEGATIVE) 06/24/17 00:30 Attending/Attestation - Attestation I have personally seen and examined this patient.: Yes I have fully participated in the care of the patient.: Yes I have reviewed all pertinent clinical information, including history, physical exam and plan: Yes Notes (Text): I have seen and examined the patient at bedside. Agree with the note above. Patient's abdominal pain has resolved. Hb is stable. There was suspicion of hemorrhagic cyst however Hb remains stable. There is no fever or leukocytosis. Patient appears stable. Follow up with Dr Kimbrough. Repeat US in [address] Dominic Penn
== END 2017-06-24 16:00 | disposition home or self-care (01) ==
LOC: ED 21:19 → ERH 06-24 02:01 → 5RSO 06-24 03:40
PROVIDERS: ADMIT Internal Medicine; ATTEND Hospitalist
DX: N83.209 Unspecified ovarian cyst, unspecified side (principal); D72.829 Elevated white blood cell count, unspecified; R10.30 Lower abdominal pain, unspecified; R93.8 Abnormal findings on diagnostic imaging of other specified body structures; R40.2412 Glasgow coma scale score 13-15, at arrival to emergency department; Z82.49 Family history of ischemic heart disease and other diseases of the circulatory system; Z83.2 Family history of diseases of the blood and blood-forming organs and certain disorders involving the immune mechanism; F12.11 Cannabis abuse, in remission; Z87.81 Personal history of (healed) traumatic fracture
CPT/HCPCS: 36415; 74177; 76830; 80053; 81003; 84702; 85025; 86304; 96365; 96375; 99285; C9113; G0378; J0696; J1885; J7040; Q9967